=== PATIENT | male | born 1985 | race African-American/Black ===

== ENCOUNTER → 2017-12-30 | Emergency (ER) | payer MEDICAID ==
[~2017-12-30] VITALS: Ht 182.9 cm; Wt 106.5 kg
[~2017-12-30] MED LIST: CefTRIAXone 1000mg IM Kit (w/lidocaine diluent) IM ONE; CefTRIAXone 250MG IM Kit w/LIDOcaine IM ONE; azithromycin 250mg tablet PO ONE; metroNIDAZOLE 500mg tablet PO ONE
[2017-12-30 06:46] VITALS: BP 161/88
== END | disposition home or self-care (01) ==
LOC: ER 06:41
DX: F41.0 Panic disorder [episodic paroxysmal anxiety] (principal); F12.10 Cannabis abuse, uncomplicated
CPT/HCPCS: 99284; J0696; J3490

== ENCOUNTER 2018-05-21 09:29 | Emergency (ER) | payer MEDICAID ==
[~2018-05-21] VITALS: Ht 182.9 cm; Wt 97.7 kg
[2018-05-21 09:31] VITALS: BP 140/102
[2018-05-21] MEDS ORDERED: mupirocin 2% ointment 22GM TP STA (09:36)
[2018-05-21] MEDS ORDERED: TETanus/Pertussis (Acell)/Diphther VAC/PF (Tdap-Adult) 0.5ml syringe IM ONE (09:40)
[2018-05-21] MEDS ORDERED: TRAM50TA2 PO (10:49)
== END 2018-05-21 11:02 | disposition home or self-care (01) ==
LOC: ER 09:29
DX: S61.212A Laceration without foreign body of right middle finger without damage to nail, initial encounter (principal); F12.90 Cannabis use, unspecified, uncomplicated; W23.0XXA Caught, crushed, jammed, or pinched between moving objects, initial encounter; Y93.89 Activity, other specified; Y92.89 Other specified places as the place of occurrence of the external cause; Y99.8 Other external cause status
CPT/HCPCS: 29130; 73140; 90715; 99284

== ENCOUNTER 2019-01-23 20:14 | Emergency (ER) | payer MEDICAID ==
[~2019-01-23] VITALS: Ht 182.9 cm; Wt 102.7 kg
[2019-01-23] MEDS ORDERED: QUEtiapine 25mg tablet PO STA (20:32)
[2019-01-23 20:41] LABS: BASOPHILS # (AUTO) 0.1 X10'3 (0-0.2); EOSINOPHILS # (AUTO) 0.4 X10'3 (0-0.9); HEMATOCRIT 41.9 % (42.0-52.0); HEMOGLOBIN 14.6 g/dl (14.0-17.9); LYMPHOCYTES # (AUTO) 3.3 X10'3 (1.1-4.8); LYMPHOCYTES % (AUTO) 42.9 % (21-51); MEAN CORPUSCULAR HEMOGLOBIN 30.8 PG (27.0-31.0); MEAN CORPUSCULAR HGB CONC 34.9 g/dL (33.0-36.5); MEAN CORPUSCULAR VOLUME 88.2 FL (78-98); MEAN PLATELET VOLUME 8.8 FL (7.4-10.4); MONOCYTES # (AUTO) 0.8 X10'3 (0-0.9); MONOCYTES % (AUTO) 9.9 % (2-12); NEUTROPHILS # (AUTO) 3.1 X10'3 (1.8-7.7); NEUTROPHILS % (AUTO) 41.2 % (42-75); PLATELET COUNT 235 X10'3 (140-440); RED BLOOD COUNT 4.76 X10'6 (4.70-6.10); RED CELL DISTRIBUTION WIDTH 13.6 % (11.5-14.5); WHITE BLOOD COUNT 7.6 X10'3 (4.5-11.0)
[2019-01-23 20:57] LABS: ALANINE AMINOTRANSFERASE 53 U/L (12-78); ALBUMIN 3.4 G/DL (3.4-5.0); ALBUMIN/GLOBULIN RATIO 0.9 (1.1-1.5); ALKALINE PHOSPHATASE 84 IU/L (46-116); ANION GAP 14 (8-16); ASPARTATE AMINO TRANSFERASE 41 U/L (10-37); BILIRUBIN,TOTAL 0.6 MG/DL (0.1-1.0); BLOOD UREA NITROGEN 11 MG/DL (7-18); BUN/CREATININE RATIO 9.6 (5.4-32.0); CALCIUM 9.3 MG/DL (8.5-10.1); CHLORIDE 105 MMOL/L (99-107); CREATININE 1.15 MG/DL (0.60-1.10); ETHANOL 0.129 GM/DL (0.0-0.010); GLUCOSE 99 MG/DL (70-104); POTASSIUM 3.3 MMOL/L (3.5-5.1); SODIUM 141 MMOL/L (135-145); TOTAL CARBON DIOXIDE 22.1 MMOL/L (24-32); TOTAL PROTEIN 7.2 G/DL (6.4-8.2); eGFR 88 ML/MIN
[2019-01-23 21:10] LABS: URINE AMPHETAMINE SCREEN POSITIVE (Neg); URINE BARBITUATE SCREEN NEGATIVE (Neg); URINE BENZODIAZEPINES SCREEN NEGATIVE (Neg); URINE CANNABINOID SCREEN POSITIVE (Neg); URINE COCAINE SCREEN NEGATIVE (Neg); URINE METHADONE SCREEN NEGATIVE (Neg); URINE OPIATE SCREEN NEGATIVE (Neg); URINE PHENCYCLIDINE SCREEN NEGATIVE (Neg)
[2019-01-23] MEDS ORDERED: DOXY100C43 PO (21:41)
[2019-01-23] MEDS ORDERED: QUET200T PO (21:41)
[2019-01-23 21:54] VITALS: BP 149/101
== END 2019-01-23 21:56 | disposition home or self-care (01) ==
LOC: ER 20:15
DX: S09.90XA Unspecified injury of head, initial encounter (principal); F15.10 Other stimulant abuse, uncomplicated; L03.032 Cellulitis of left toe; F12.90 Cannabis use, unspecified, uncomplicated; Y04.0XXA Assault by unarmed brawl or fight, initial encounter; Y93.89 Activity, other specified; Y92.89 Other specified places as the place of occurrence of the external cause; Y99.9 Unspecified external cause status
CPT/HCPCS: 36415; 70450; 80053; 80305; 80320; 82948; 85025; 99284

== ENCOUNTER 2021-03-12 00:31 | Emergency (ER) | payer BC, MEDICAID ==
[~2021-03-12] VITALS: Ht 182.9 cm; Wt 120.0 kg
[~2021-03-12 00:31] MED LIST changes: -CefTRIAXone 1000mg IM Kit (w/lidocaine diluent) IM ONE; -CefTRIAXone 250MG IM Kit w/LIDOcaine IM ONE; +QUET200T PO; -azithromycin 250mg tablet PO ONE; -metroNIDAZOLE 500mg tablet PO ONE
[2021-03-12 00:33] VITALS: BP 196/114
--- NOTE | 2021-03-12 00:42 | NUR ---
pt instructed on bp monitoring over the next month 3 x week different times of day, to keep diary. To see an MD re: bp Educated pt about 2 gm NA diet.
[2021-03-12] MEDS ORDERED: LIDOcaine 1% W/epiNEPHrine 1:100,000 20ml vial SQ ONE (01:25)
[2021-03-12] MEDS ORDERED: penicillin V potassium 500mg tablet PO ONE (02:10)
[2021-03-12] MEDS ORDERED: HYDROcodone/acetaminophen 10/325mg tab PO ONE (02:10)
[2021-03-12] MEDS ORDERED: PENI500T2 PO (02:11)
[2021-03-12] MEDS ORDERED: HYDR-3972 PO (02:11)
== END 2021-03-12 02:17 | disposition home or self-care (01) ==
LOC: ER 00:32
DX: K02.9 Dental caries, unspecified (principal); K08.89 Other specified disorders of teeth and supporting structures; F12.90 Cannabis use, unspecified, uncomplicated; F15.90 Other stimulant use, unspecified, uncomplicated; Z79.2 Long term (current) use of antibiotics; Z79.899 Other long term (current) drug therapy
CPT/HCPCS: 64400; 99284

== ENCOUNTER 2021-07-13 17:34 | Emergency (ER) | payer BC, MEDICAID ==
[~2021-07-13] VITALS: Ht 180.3 cm; Wt 100.5 kg
[2021-07-13 17:44] VITALS: BP 149/110
[2021-07-13] MEDS ORDERED: LIDOcaine 1% w/epiNEPHrine 1:200,000 30ml vial IJ ONE (17:50)
[2021-07-13] MEDS ORDERED: LIDOcaine 1% W/epiNEPHrine 1:200,000 10ml vial IJ ONE (17:50)
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
[2021-07-13] MEDS ORDERED: NAPR-56 PO (19:30)
[2021-07-13] MEDS ORDERED: CEPH250T PO (19:30)
[2021-07-13] MEDS ORDERED: HYDR-3965 PO (19:30)
== END 2021-07-13 20:00 | disposition home or self-care (01) ==
LOC: ER 17:36
DX: S01.311A Laceration without foreign body of right ear, initial encounter (principal); Y04.0XXA Assault by unarmed brawl or fight, initial encounter; Y93.89 Activity, other specified; Y92.89 Other specified places as the place of occurrence of the external cause; Y99.8 Other external cause status
CPT/HCPCS: 12001; 12011; 12013; 70450; 70486; 99285

== ENCOUNTER 2021-07-17 07:55 | Emergency (ER) | payer BC, MEDICAID ==
[~2021-07-17] VITALS: Ht 182.9 cm; Wt 86.2 kg
[~2021-07-17 07:55] MED LIST changes: +CEPH250T PO; +HYDR-3965 PO; +NAPR-56 PO
[2021-07-17 08:01] VITALS: BP 137/95
[2021-07-17] MEDS ORDERED: IBUP-1986 PO ×2 (08:14→08:26)
[2021-07-17] MEDS ORDERED: LIDOcaine 1% 30ml preserv. free vial SQ STA (08:34)
== END 2021-07-17 08:33 | disposition home or self-care (01) ==
LOC: ER 07:56
DX: S01.311D Laceration without foreign body of right ear, subsequent encounter (principal); F14.10 Cocaine abuse, uncomplicated; F15.10 Other stimulant abuse, uncomplicated; X58.XXXD Exposure to other specified factors, subsequent encounter
CPT/HCPCS: 99281

== ENCOUNTER 2021-07-20 06:01 | Emergency (ER) | payer MEDICAID ==
[~2021-07-20] VITALS: Ht 180.3 cm; Wt 100.0 kg
[~2021-07-20 06:01] MED LIST changes: +IBUP-1986 PO
[2021-07-20 06:38] VITALS: BP 164/96
[2021-07-20] MEDS ORDERED: ACET-1025 PO (09:59)
== END 2021-07-20 10:31 | disposition home or self-care (01) ==
LOC: ER 07:50
DX: S01.311D Laceration without foreign body of right ear, subsequent encounter (principal); Z48.02 Encounter for removal of sutures; X58.XXXD Exposure to other specified factors, subsequent encounter
CPT/HCPCS: 99282